=== PATIENT | male | born 1985 | race Caucasian/White ===

== ENCOUNTER 2018-03-22 00:27 | Emergency (ER) | payer OTHER ==
[~2018-03-22] VITALS: Ht 190.5 cm; Wt 99.8 kg
[2018-03-22] MEDS ORDERED: Prozac40 MG PO (00:42)
[2018-03-22] MEDS ORDERED: LIDO700A20 TOP (03:59)
== END 2018-03-22 04:14 | disposition home or self-care (01) ==
LOC: ER 00:27
DX: S20.212A Contusion of left front wall of thorax, initial encounter (principal); F17.200 Nicotine dependence, unspecified, uncomplicated; Z79.899 Other long term (current) drug therapy; W22.8XXA Striking against or struck by other objects, initial encounter
CPT/HCPCS: 71046; 99283